=== PATIENT | male | born 1995 | race Caucasian/White ===

== ENCOUNTER 2022-12-20 08:46 | Emergency (ER) | payer MEDICAID ==
[2022-12-20] MEDS ORDERED: ONDANSETRON 4 MG/2 ML VIAL IVP STA (09:20)
[2022-12-20] MEDS ORDERED: SODIUM CHLORIDE 0.9% 1,000 ML IV STA (09:20)
--- NOTE | 2022-12-20 09:36 | ED Physician Documentation ---
History of Present Illness - Stated complaint Stated Complaint: ETOH - Chief complaint Chief Complaint: General - History obtained from History obtained from: Patient, Family (Patient's fianc) - Additonal information Additional information: Patient is a 27-year-old male with a history of alcohol abuse presenting for evaluation of "Tumors in his gallbladder). He reports recently being admitted at [facility] and was told that he has tumors in his gallbladder and that he should be seen at [facility] or [facility]. He recently Moved to [facility] 5 days ago and has presented to our emergency department for follow-up. He reports throwing out his discharge paperwork and is unsure what they stated.He also reports continuing to drink heavily with last drink last night. Fianc states he drinks 1-2/5 of hard liquor daily. When asked patient whether he is interested in detox he states no. He does have a history of alcohol withdrawal seizures. Review of outside records from care everywhere. Patient was admitted to [facility] in [facility] from December 07 through December 11 for alcohol withdrawal syndrome without complication, alcohol induced acute pancreatitis. Patient had an ultrasound on December 09, 2022 with the following finding: IMPRESSION: 6 x 4 x 6 mm gallbladder polyp. Fatty infiltration of the liver. Otherwise, Unremarkable right upper quadrant ultrasound Discharge summary includes the following information. HOSPITAL COURSE: Acute alcohol withdrawal Alcohol dependence History of alcohol withdrawal seizures. Currently no seizures since admission. Alcoholic pancreatitis History of recurrent alcoholic pancreatitis Alcoholic hepatitis Cannabinoid intoxication Treated per CIWA protocol and was on librium. Last drink was on 12/06/22 in am. CIWA scores were low in the last 24 hours on 12/11 review. Patient was arraging himself to go to inpatient rehab facility after discharge. He was also treated with IVF, and resume his diet and tolerated well. Noted abrnorma LF, which is likely ETOH induced and was improving. Continue to monitor liver function tests Echogenic/fatty liver, likely due to alcohol. Needs cirrhosis workup with GI specialist or PCP. Discharging on multivitamins and folic and thiamine. Alcoholic pancreatitis Nausea and vomiting Resolved. Mild hypotonic hyponatremia Resolved Gallbladder polyp, 6 x 4 x 6 mm. Echogenic liver Needs GI or PCP follow up for liver fibrosis and cirrhosis assessment. Follow up if needed for gallbladder polyp with general surgery, receive referral from PCP. Reported these findings to patient. Since patient is not able to tell except that his goal is to move to [facility] after [place] [facility], I recommended to follow up with PCP. Stated he has PCP in [place]. Encourage him to have follow up with him since he stated he would be making regular trips to [place]. Review of Systems Constitutional: denies: Fever Cardiac: denies: Chest pain / pressure Respiratory: denies: Dyspnea GI: reports: Abdominal Pain. denies: Diarrhea : denies: Dysuria Musculoskeletal: denies: Back pain Neurologic: denies: Headache PD PAST MEDICAL HISTORY - Present Medications Home Medications: Ambulatory Orders Medication Instructions Recorded Confirmed No Known Home Medications 12/20/22 12/20/22 - Allergies Allergies/Adverse Reactions: Allergies Allergy/AdvReac Type Severity Reaction Status Date / Time No Known Drug Allergies Allergy Verified 12/20/22 09:00 PD ED PE NORMAL - General General: Alert and oriented X 3, No acute distress, Well developed/nourished - HEENT HEENT: Atraumatic - Neck Neck: Supple, no meningeal sign - Cardiac Cardiac: RRR - Respiratory Respiratory: No respiratory distress, Clear bilaterally - Abdomen Abdomen: Normal bowel sounds, Soft, Non distended, Other (Mild right lower quadrant tenderness to palpation, no rebound, no guarding) - Derm Derm: Warm and dry - Extremities Extremities: No edema Results - Vitals Vitals: Vital Signs - 24 hr 12/20/22 12/20/22 09:01 12:10 Temperature 37.4 C Heart Rate 117 H 93 Respiratory 18 18 Rate Blood Pressure 142/95 H 128/88 H O2 Saturation 95 98 Oxygen O2 Source Room air - Labs Labs: Laboratory Tests 12/20/22 12/20/22 09:36 09:36 WBC 5.3 RBC 4.47 L Hgb 13.8 L Hct 42.2 MCV 94.4 H MCH 30.9 MCHC 32.7 RDW 13.6 Plt Count 358 MPV 8.4 Neut # (Auto) 2.6 Lymph # (Auto) 2.0 Sharkey # (Auto) 0.5 Eos # (Auto) 0.1 Baso # (Auto) 0.1 Absolute Nucleated RBC 0.00 Nucleated RBC % 0.0 Sodium 139 Potassium 3.2 L Chloride 97 L Carbon Dioxide 25 Anion Gap 17.0 H BUN 8 Creatinine 0.7 Estimated GFR (MDRD) 135 Glucose 207 H Calcium 9.2 Total Bilirubin 0.4 AST 90 H ALT 89 H Alkaline Phosphatase 39 L Total Protein 7.1 Albumin 4.2 Globulin 2.9 Albumin/Globulin Ratio 1.4 Lipase 58 H Ethyl Alcohol 331.1 PD Medical Decision Making - ED course Complexity details: reviewed results, re-evaluated patient, d/w patient, d/w family ED course: Pt with R sided abdominal pain, alcohol abuse, and recent admission where he was told about a gallbladder polyp. Pt wanted testing of his "gallbladder tumor". I reviewed his discharge summary and explained the follow up plan for him for a gallbladder polyp which he states he know understands and has a PCP at [facility]. He does have RLQ pain and a CT was obtained without any acute findings. No significant RUQ pain to suggest cholecystitis. I did also review the images. His labs were reviewed. He does have elevations in his LFTs which are similar to discharge labs. K is 3.2. His ETOH level is quite high but clinically he is walking steadily on his own and has clear speech. I have asked and offered several times whether he wants detox or to speak to SW regarding his alcohol abuse and he repeatedly declines. Significant other also here with him. Pt feeling better here after IV fluids and tolerating PO. Repeat abdominal exam is benign. 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 ADvised on need for follow up and aware of return precautions. Departure - Departure Disposition: 01 Home, Self Care Clinical Impression: Right sided abdominal pain, Gallbladder polyp, Alcohol intoxication Condition: Stable Instructions: ED Alcohol Intoxication, ED Diet Low Fat Comments: Your alcohol level was elevated today. This continues to affect your liver and I continue to encourage you to try and abstain from alcohol use.A CT scan was performed of your abdomen pelvis and shows a normal appendix. I would recommend close follow-up with your primary care doctor.In the meanwhile I would recommend a low-fat diet as you may be having issues with your gallbladder and this could help reduce some of your symptoms. I was able to review your discharge summary from your recent hospitalization. You have a polyp in your gallbladder. Yours is approximately 6 mm. The discharge summary states the following "After leaving the hospital it is important that you do these things: Follow up on your liver function and slightly abnormal liver imaging likely related due to regular alcohol use. You will need referral or your regular doctor can repeat labs and scans. You will need to discuss with your regular doctor or general surgeon if you need your gall bladder removed due to small polyp which is notice on ultrasound 6x4x6 mm. This is usually benign (non-cancer) polyp. Malignant polyps tend to be larger than benign ones usually more than 2 centimeters in diameter. To be safe, healthcare providers typically recommend removing a polyp that is 1 centimeter or more. So please discuss with your doctor. Please contact Brad Argueta MD or return to the Emergency Department if you have any of these signs or symptoms: Worsening symptoms of anxiety, abdominal pain, fevers, nausea or vomiting, bleeding." Discharge Date/Time: 12/20/22 12:12
[2022-12-20 09:44] LABS: BASOPHILS # (AUTO) 0.1 10^3/uL (0.0-0.1); BASOPHILS % (AUTO) 1.3 %; EOSINOPHILS # (AUTO) 0.1 10^3/uL (0.0-0.7); EOSINOPHILS % (AUTO) 1.9 %; HCT - HEMATOCRIT 42.2 % (42.0-52.0); HGB - HEMOGLOBIN 13.8 g/dL (14.0-18.0); LYMPHOCYTES % (AUTO) 37.5 %; MEAN CORPUSCULAR HEMOGLOBIN 30.9 pg (27.0-31.0); MEAN CORPUSCULAR HGB CONC 32.7 g/dL (32.0-36.0); MEAN CORPUSCULAR VOLUME 94.4 fL (80.0-94.0); MEAN PLATELET VOLUME 8.4 fL (7.4-11.4); MONOCYTES # (AUTO) 0.5 10^3/uL (0.0-1.0); MONOCYTES % (AUTO) 9.1 %; NEUTROPHILS # (AUTO) 2.6 10^3/uL (1.5-6.6); PLT - PLATELET COUNT 358 10^3/uL (130-450); RED BLOOD COUNT 4.47 10^6/uL (4.70-6.10); RED CELL DISTRIBUTION WIDTH 13.6 % (12.0-15.0); WHITE BLOOD COUNT 5.3 x10^3/uL (4.8-10.8)
[2022-12-20 10:06] LABS: ALBUMIN 4.2 g/dL (3.2-5.5); ALBUMIN/GLOBULIN RATIO 1.4 (1.0-2.2); BILIRUBIN,TOTAL 0.4 mg/dL (0.2-1.0); CALCIUM 9.2 mg/dL (8.5-10.3); CREATININE 0.7 mg/dL (0.6-1.2); ETOH - ETHANOL 331.1 mg/dL; POTASSIUM 3.2 mmol/L (3.5-5.0); TOTAL PROTEIN 7.1 g/dL (6.7-8.2)
[2022-12-20] MEDS ORDERED: iohexoL-300 100 ML VIAL ONE (10:37)
[2022-12-20] MEDS ORDERED: iohexoL-300 100 ML VIAL IVP ONE (11:35)
--- NOTE | 2022-12-20 11:49 | CT Report ---
PROCEDURE: ABDOMEN/PELVIS W INDICATIONS: RLQ pain CONTRAST: 100ml Omnipaque 300 TECHNIQUE: After the administration of IV contrast, 5 mm thick sections acquired from the diaphragms to the symp hysis. 5 mm thick coronal and sagittal reformats were acquired. For radiation dose reduction, the f ollowing was used: automated exposure control, adjustment of mA and/or kV according to patient size. COMPARISON: None. FINDINGS: Image quality: Excellent. ABDOMEN: Lung bases: Lung bases are clear. Heart size is normal. Solid organs: Liver is enlarged, and demonstrates diffusely decreased density without focal mass. Sp gricel is within normal limits. Gallbladder is within normal limits Biliary system is non dilated. Pa ncreas enhances normally. No adrenal nodules. Kidneys demonstrate normal size and enhancement, with out hydronephrosis. Peritoneum and bowel: Bowel loops demonstrate normal wall thickness and caliber. Normal appendix. N o free fluid or air. Nodes and vessels: No retroperitoneal or mesenteric adenopathy by size criteria. Aorta and inferior vena cava are normal in size. Miscellaneous: No ventral hernias. PELVIS: Genitourinary: Bladder wall thickness is normal. Miscellaneous: No inguinal hernias or adenopathy. Bones: No suspicious bony lesions. No vertebral body compression fractures. IMPRESSION: 1. No acute process. 2. Normal appendix. 3. Hepatic steatosis. Reviewed by: Rolanda Amin MD on 12/20/2022 11:48 AM PST Approved by: Rolanda Amin MD on 12/20/2022 11:48 AM PST Station ID: [id number]
[2022-12-20] MEDS ORDERED: POTASSIUM CHLORIDE 20 MEQ TABLET PO STA (11:55)
[2022-12-20 12:13] VITALS: BP 128/88
== END 2022-12-20 12:12 | disposition home or self-care (01) ==
LOC: EDBD → ED 08:46
DX: K82.4 Cholesterolosis of gallbladder (principal); F10.129 Alcohol abuse with intoxication, unspecified; Y90.8 Blood alcohol level of 240 mg/100 ml or more; R10.31 Right lower quadrant pain
CPT/HCPCS: 36415; 74177; 80053; 80320; 83690; 85025; 96361; 96374; 99284; A9270; Q9967

== ENCOUNTER 2022-12-22 21:53 | Outpatient (CLI) | payer MEDICAID | END 2022-12-22 21:54 | disposition short-term general hospital (02) | LOC: EMS 21:53 | DX: Z04.6 Encounter for general psychiatric examination, requested by authority (principal); R56.9 Unspecified convulsions; R45.6 Violent behavior; R51.9 Headache, unspecified; S60.812A Abrasion of left wrist, initial encounter; X58.XXXA Exposure to other specified factors, initial encounter; R10.11 Right upper quadrant pain | CPT/HCPCS: A0425; A0429; A0999 ==